=== PATIENT | female | born 1960 | race Caucasian/White ===

== ENCOUNTER 2025-06-29 07:37 | Day surgery (SDC) | payer MEDICARE ==
[2025-06-26 11:19] LABS: LEUKOCYTE ESTERASE ,URINE NEGATIVE (Neg); NITRITES, URINE NEGATIVE (Neg); OCCULT BLOOD,URINE NEGATIVE (Neg)
[2025-06-26 11:20] LABS: MEAN PLATELET VOLUME 8.5 FL (7.4-10.4); PRE OP HEMATOCRIT 43.5 % (35.0-45.0); PRE OP HEMOGLOBIN 14.4 g/dL (12.0-16.0); PRE OP PLATELET COUNT 268 X10'3 (140-440); PRE OP WHITE BLOOD COUNT 5.3 10'3 (4.8-10.8); RED CELL DISTRIBUTION WIDTH 13.7 % (11.5-14.5)
[2025-06-26 11:23] LABS: UA COLLECTION TYPE CLN CATCH MIDSTREAM
[2025-06-26 11:36] LABS: CREATININE 0.66 MG/DL (0.40-0.90); PRE OP ALT 28 U/L (30-65); PRE OP ANION GAP 7 (8-16); PRE OP AST 18 U/L (10-37); PRE OP BILIRUB, TOTAL 0.5 MG/DL (0.0-1.0); PRE OP GLUCOSE 95 MG/DL (70-104); PRE OP POTASSIUM 3.7 MMOL/L (3.4-5.1); PRE OP SODIUM 138 MMOL/L (135-145); TOTAL CARBON DIOXIDE 29.3 MMOL/L (24-32); eGFR 90 ML/MIN
[2025-06-29] VITALS (8 sets, daily range): BP systolic 125–135; BP diastolic 75–88; PULSE 64–81; RESP 10–16; TEMP 98.4; O2SAT 98–100
[~2025-06-29] VITALS: Ht 160 cm; Wt 54.8 kg
[~2025-06-29 07:37] MED LIST: IBUP-1986 PO; RIZA10TA98 PO
[2025-06-29] MEDS ORDERED: bacitracin 15gm ointment TP ONE (08:09)
[2025-06-29] MEDS ORDERED: BUPIVAcaine/PF 2.5mg/ml (0.25%) 10ml vial ONE (08:09)
[2025-06-29] MEDS ORDERED: ceFAZolin 2gm/dext,iso 50mL 50 ML IV ONE (08:26)
[2025-06-29] MEDS: ringers solution, lacted 1,000 ML IV SCH (08:28)
[2025-06-29] MEDS ORDERED: labetalol 20mg/4ml (5mg/ml) syringe IV PRN (08:30)
[2025-06-29] MEDS ORDERED: ringers solution, lacted 1,000 ML IV SCH (08:30)
[2025-06-29] MEDS ORDERED: ondansetron/PF 4mg/2ml inj IV PRN (08:30)
[2025-06-29] MEDS ORDERED: meperidine/PF 25mg/ml syringe IV PRN ×3 (08:30)
[2025-06-29] MEDS ORDERED: enalaprilat 1.25mg/ml 2ml vial IV PRN (08:30)
[2025-06-29] MEDS ORDERED: fentaNYL/PF 50MCG/1 ML 2ML syringe ONE (09:54)
[2025-06-29] MEDS ORDERED: midazolam 1 mg/ML 2ml injection ONE (09:56)
[2025-06-29] MEDS ORDERED: LIDOcaine 2% (20mg/ml) 5ml vial ONE (09:59)
[2025-06-29] MEDS ORDERED: propofol inj 20 ML IV ONE (09:59)
[2025-06-29] MEDS ORDERED: acetaminophen 1,000mg/100ml IV 100 ML IV ONE (10:02)
[2025-06-29] MEDS ORDERED: dexamethasone sod phosphate 4mg/ml inj. ONE (10:07)
[2025-06-29] MEDS ORDERED: ondansetron/PF 4mg/2ml inj ONE (10:07)
== END 2025-06-29 12:08 | disposition home or self-care (01) ==
LOC: PAS 07:37
PROVIDERS: ATTEND Podiatrist Foot & Ankle Surgery
DX: M20.12 Hallux valgus (acquired), left foot (principal); Z87.891 Personal history of nicotine dependence; Z79.1 Long term (current) use of non-steroidal anti-inflammatories (NSAID); Z79.899 Other long term (current) drug therapy; Z90.49 Acquired absence of other specified parts of digestive tract; Z90.89 Acquired absence of other organs; Z98.51 Tubal ligation status; Z98.890 Other specified postprocedural states; Z88.5 Allergy status to narcotic agent
CPT/HCPCS: 28296; 36415; 73630; 80053; 81003; 82948; 85025; A4618; A6223; A6253; A6402; A6449; A7000; C1713; J0131; J1100; J2003; J2250; J2405; J2704; J3010; J3490; J7030; J7120; Z7506; Z7508; Z7512; Z7610; 76000